=== PATIENT | female | born 1950 | race Caucasian/White ===

== ENCOUNTER 2016-10-14 13:56 | Outpatient (RCR) | payer OTHER ==
[~2016-10-14 13:56] MED LIST: ALBU2.5V4 IH; ASMANAX IH; ASP81CT; ATEN100T45 PO; CYCL10TA9 PO; CYCL5TAB PO; GBPN300C PO; HYDR-87; HYDR25TA4 PO; Lutein; MELO7.5T46 PO; MTP100TCR; MULT-1029 PO; RT-ALBUINH IH; WALK1EAC23 MC; WARF2.5T82 PO; WRF2.5T; WRF5T; WRF5T PO
== END 2016-10-14 14:30 | disposition home or self-care (01) ==
LOC: WOUNDCARE 13:56
PROVIDERS: ATTEND Surgery
DX: L98.492 Non-pressure chronic ulcer of skin of other sites with fat layer exposed (principal); B36.9 Superficial mycosis, unspecified; E66.01 Morbid (severe) obesity due to excess calories; Z68.42 Body mass index [BMI] 45.0-49.9, adult
CPT/HCPCS: 11042; 17250; 87070; 87075; 87205; 99212; 99213

== ENCOUNTER → 2016-12-01 | Outpatient (CLI) | payer OTHER ==
--- NOTE | 2016-12-01 20:28 | Diagnostic Imaging Report ---
Bilateral screening mammogram The current study was also evaluated with a Computer Aided Detection (CAD) system. Indication: Screening. No current complaints stated on the questionnaire. COMPARISON: 11/26/15. FINDINGS: The breasts are composed of scattered fibroglandular densities. There are scattered benign-appearing calcifications. Stable nodule in the central aspect of the right breast inferiorly and scattered benign-appearing calcifications are seen. Lateral left breast biopsy clip is noted. Allowing for technique and positional differences, no suspicious change is seen. IMPRESSION: No significant change. ACR BI-RADS Category 2: Benign findings. Result letter will be mailed to the patient. Note: At least 10% of breast cancer is not imaged by mammography. Dictated by: Dictated on workstation # [id number]
== END ==
LOC: RAD 09:59
PROVIDERS: ATTEND Internal Medicine
DX: Z12.31 Encounter for screening mammogram for malignant neoplasm of breast (principal)
CPT/HCPCS: 77067

== ENCOUNTER 2017-01-09 16:28 | Inpatient (IN) | payer OTHER ==
[~2017-01-09] VITALS: Ht 157.5 cm; Wt 117.1 kg
[~2017-01-09 16:28] MED LIST changes: -Lutein; +Lutein PO
--- NOTE | 2017-01-09 16:38 | ED Abdominal Pain ---
General Stated Complaint: VOMITING AND R SIDE PAIN Source of Information: Patient Exam Limitations: No Limitations History of Present Illness Time Seen By Provider: 16:36 Initial Comments To ER with reports of vomiting and right-sided abdominal pain. The pain affects both the upper and lower quadrants of the right side of the abdomen. This began last night. No fevers or chills. No constipation or diarrhea. No dysuria. She does not have an appendix any longer but she does have her gallbladder still she states. Pain has been constant since last night. He takes hydrocodone for her arthritis. She takes Coumadin for atrial fibrillation. Primary care is the CT and LEYDA Matson at [facility]. Timing/Duration: 12-24 Hours Severity/Quality: Severe Location: RUQ, RLQ Radiation: No Radiation Activities at Onset: None Allergies and Home Medications Allergies Coded Allergies: No Known Drug Allergies (Verified , 06/13/08) Home Medications Albuterol Sulfate 6.7 Gm Hfa.aer.ad, 6.7 GM IH PRN, (Reported) Albuterol Sulfate 2.5 Mg/3 Ml Vial.neb, 2.5 MG IH PRN, (Reported) Atenolol 100 Mg Tablet, 100 MG PO DAILY, (Reported) Cyclobenzaprine HCl 5 Mg Tablet, 5 MG PO Q8H, #15 Prescribed by: BUSTER CORTEZ on 06/30/16 0607 Gabapentin 300 Mg Cap, 300 MG PO BID, (Reported) Hydrochlorothiazide 25 Mg Tablet, 12.5 MG PO DAILY, (Reported) Hydrocodone/Ibuprofen 1 Each Tablet, #84 (Reported) Meloxicam 7.5 Mg Tablet, 7.5 MG PO DAILY, #30 (Reported) Multivit-Min/FA/Lycopene/Lut 1 Each Tablet, 1 EACH PO DAILY, (Reported) Warfarin Sod 5 Mg Tab, 5 MG PO , , , (Reported) Warfarin Sodium 2.5 Mg Tablet, 2.5 MG PO Lloyd, M, W, F, (Reported) [Asmanax] , 220 MCG IH BID, (Reported) [Lutein] , (Reported) Review of Systems Constitutional: see HPI, No chills, No fever EENTM: No Symptoms Reported Respiratory: No Symptoms Reported Cardiovascular: No Symptoms Reported Gastrointestinal: See HPI, Abdominal Pain, Denies Constipated, Denies Diarrhea , Nausea, Vomiting Genitourinary: No Symptoms Reported Musculoskeletal: no symptoms reported Skin: no symptoms reported Psychiatric/Neurological: No Symptoms Reported Endocrine: No Symptoms Reported Past Rntrvus-Huinho-Xhjqrf Hx Patient Social History Type Used: Cigarettes Recent Foreign Travel: No Contact w/Someone Who Travel: No Recent Hopitalizations: No Seasonal Allergies Seasonal Allergies: Yes Surgeries HX Surgeries: Yes Surgeries: Abdominal, Adenoidectomy, Appendectomy, Section, Renal, Tonsillectomy, Tubal Ligation Respiratory Hx Respiratory Disorders: Yes Respiratory Disorders: Asthma Cardiovascular Hx Cardiac Disorders: Yes (A-FIB WITH RVR) Cardiac Disorders: Atrial Fibrillation, Chronic Edema/Swelling, High Cholesterol, Hypertension Neurological Hx Neurological Disorders: No Neurological Disorders: Neuropathy Reproductive System Hx 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 Genitourinary Hx Genitourinary Disorders: Yes Genitourinary Disorders: Kidney Stones Gastrointestinal Hx Gastrointestinal Disorders: Yes (VENTRAL HERNIAS) Gastrointestinal Disorders: Abdominal Hernia Musculoskeletal Hx Musculoskeletal Disorders: Yes (SCIATICA; COMPRESSION FX) Musculoskeletal Disorders: Chronic Back Pain, Fractures Endocrine Hx Endocrine Disorders: Yes (THYROID NODULES; MORBID OBESITY) HEENT HX ENT Disorders: No Cancer Hx Cancer: No Psychosocial Hx Psychiatric Problems: No Behavioral Health Disorders: Anxiety Integumentary HX Skin/Integumentary Disorder: No Blood Transfusions Hx Blood Disorders: No Physical Exam Vital Signs VS - Last 72 Hours, by Label 01/09/17 16:31 Temp 98.3 Pulse 81 Resp 18 B/P (MAP) 193/103 Capillary Refill : General Appearance: WD/WN, mild distress, obese HEENT: PERRL/EOMI, normal ENT inspection Neck: non-tender, full range of motion Respiratory: normal breath sounds, no respiratory distress, no accessory muscle use Cardiovascular: regular rate, rhythm, no murmur Gastrointestinal: normal bowel sounds, soft, tenderness (to the right side of the abdomen) Extremities: normal range of motion, non-tender Neurologic/Psychiatric: alert, normal mood/affect, oriented x 3 Skin: normal color, warm/dry Progress/Results/Core Measures Results/Orders Lab Results Laboratory Tests Test 01/09/17 16:40 Range/Units White Blood Count 18.3 H 4.3-11.0 10^3/uL Red Blood Count 6.09 H 4.35-5.85 10^6/uL Hemoglobin 14.9 11.5-16.0 G/DL Hematocrit 46 35-52 % Mean Corpuscular Volume 76 L 80-99 FL Mean Corpuscular Hemoglobin 25 25-34 PG Mean Corpuscular Hemoglobin Concent 32 32-36 G/DL Red Cell Distribution Width 22.2 H 10.0-14.5 % Platelet Count 307 130-400 10^3/uL Mean Platelet Volume 10.6 H 7.4-10.4 FL Neutrophils (%) (Auto) 86 H 42-75 % Lymphocytes (%) (Auto) 8 L 12-44 % Monocytes (%) (Auto) 6 0-12 % Eosinophils (%) (Auto) 0 0-10 % Basophils (%) (Auto) 0 0-10 % Neutrophils # (Auto) 15.7 H 1.8-7.8 X 10^3 Lymphocytes # (Auto) 1.4 1.0-4.0 X 10^3 Monocytes # (Auto) 1.1 H 0.0-1.0 X 10^3 Eosinophils # (Auto) 0.0 0.0-0.3 10^3/uL Basophils # (Auto) 0.0 0.0-0.1 10^3/uL Neutrophils % (Manual) 81 % Lymphocytes % (Manual) 7 % Monocytes % (Manual) 8 % Eosinophils % (Manual) 0 % Basophils % (Manual) 0 % Band Neutrophils 4 % Anisocytosis MARKED Microcytosis SLIGHT Prothrombin Time 23.2 H 12.2-14.7 SEC INR Comment 2.1 H 0.8-1.4 Sodium Level 143 135-145 MMOL/L Potassium Level 3.7 3.6-5.0 MMOL/L Chloride Level 103 98-107 MMOL/L Carbon Dioxide Level 29 21-32 MMOL/L Anion Gap 11 5-14 MMOL/L Blood Urea Nitrogen 16 7-18 MG/DL Creatinine 0.74 0.60-1.30 MG/DL Estimat Glomerular Filtration Rate > 60 BUN/Creatinine Ratio 22 Glucose Level 146 H 70-105 MG/DL Calcium Level 9.7 8.5-10.1 MG/DL Total Bilirubin 0.8 0.1-1.0 MG/DL Aspartate Amino Transf (AST/SGOT) 19 5-34 U/L Alanine Aminotransferase (ALT/SGPT) 22 0-55 U/L Alkaline Phosphatase 93 40-136 U/L Total Protein 7.3 6.4-8.2 G/DL Albumin 4.2 3.2-4.5 G/DL Lipase 22 8-78 U/L My Orders Orders - BEBETO CAMPBELL APRN Cbc With Automated Diff (01/09/17 16:38) Comprehensive Metabolic Panel (01/09/17 16:38) Ua Culture If Indicated (01/09/17 16:38) Saline Lock/Iv-Start (01/09/17 16:38) Ct Abdomen/Pelvis W (01/09/17 16:38) Lipase (01/09/17 16:38) Fentanyl Injection (Sublimaze Injection (01/09/17 16:45) Ondansetron Injection (Zofran Injectio (01/09/17 16:45) Protime With Inr (01/09/17 16:38) Manual Differential (01/09/17 16:40) Iohexol Injection (Omnipaque 350 Mg/Ml 1 (01/09/17 17:30) Ns (Ivpb) (Sodium Chloride 0.9% Ivpb Bag (01/09/17 17:30) Us Gallbladder [id number] (01/09/17 ) Medications Given in ED Current Medications Medications Dose Ordered Sig/Vidhi Route Start Time Stop Time Status Last Admin Dose Admin Fentanyl Citrate 50 mcg ONCE ONCE IVP 01/09/17 16:45 01/09/17 16:46 DC 01/09/17 16:59 50 MCG Iohexol 100 ml ONCE ONCE IV 01/09/17 17:30 01/09/17 17:31 DC 01/09/17 17:36 100 ML Ondansetron HCl 4 mg ONCE ONCE IVP 01/09/17 16:45 01/09/17 16:46 DC 01/09/17 16:57 4 MG Sodium Chloride 100 ml ONCE ONCE IV 01/09/17 17:30 01/09/17 17:31 DC 01/09/17 17:36 80 ML Vital Signs/I&O Vital Sign - Last 12Hours 01/09/17 16:31 Temp 98.3 Pulse 81 Resp 18 B/P (MAP) 193/103 Diagnostic Imaging Diagonstic Imaging: CT Comments NAME: SAM OSCAR MED REC#: [id number] PT STATUS: REG ER : 1950 PHYSICIAN: BEBETO CAMPBELL APRN ADMIT DATE: 01/09/17/ER Draft Date of Exam:01/09/17 CT ABDOMEN/PELVIS W PROCEDURE: CT abdomen and pelvis with contrast. TECHNIQUE: Multiple contiguous axial images were obtained through the abdomen and pelvis after administration of intravenous contrast. INDICATION: Nausea, vomiting. COMPARISON: 12/27/2006. FINDINGS: Lung bases are clear. Gallbladder, solid organs, and vascular structures are grossly normal. There are moderately distended loops of small bowel in the left mid abdomen and centrally. Large lower abdominal hernia and diastasis is present and essentially unchanged from the prior examination. Small amount of fluid density is seen within the left lower quadrant abdominal hernia. A definite transition point is not seen involving the small bowel obstruction. The colon and distal small bowel loops are decompressed. There is no ischemia, free air, or free fluid. Reproductive organs, urinary bladder, and distal ureters are grossly normal. IMPRESSION: Large left lower quadrant abdominal wall hernia with diastasis of the anterior abdominal wall with small bowel obstruction. A definite transition point is not seen although it is suspected to be within the large lower abdominal wall hernia. Please note due to technical factors, the entire abdominal wall was not included during this series. Follow-up recommended. Dictated on workstation # [id number] Dict: 01/09/17 1757 Trans: 01/09/17 1807 [id number] Interpreted by: JAYJAY SANDERSON Electronically signed by: NAME: [facility] REC#: [id number] PT STATUS: REG ER : 1950 PHYSICIAN: BEBETO CAMPBELL MANIPULATIVE THERAPY SPECIALIST ADMIT DATE: 01/09/17/ER Draft Date of Exam:01/09/17 US GALLBLADDER [id number] PROCEDURE: US Gallbladder. TECHNIQUE: Multiple real-time grayscale images were obtained over the right upper quadrant in various projections. INDICATION: Right upper quadrant abdominal pain. COMPARISON: None. FINDINGS: The size and echogenicity of the liver is normal. There is no mass or intrahepatic biliary ductal dilatation. Common bile duct is poorly visualized due to overlying bowel gas. Single gallstone is seen within the gallbladder. No cholecystitis is seen. Pancreas is poorly visualized. The right kidney is normal. There is no ascites. IMPRESSION: Cholelithiasis without cholecystitis. Dictated on workstation # [id number] Dict: 01/09/17 1820 Trans: 01/09/17 1824 [id number] Interpreted by: JAYJAY SANDERSON Electronically signed by: Departure Communication Time/Spoke to Admitting Phy: 18:30 Communication Discussed the case with Dr. Mobley. We will admit to him. Consult medicine. Continue the warfarin for her atrial fibrillation at this time. No antibiotics at this time, leukocytosis likely secondary to nausea vomiting and stress response. Time/Spoke to Consulting Physi: 18:31 Communication/Consulting Consult to Dr. Carbajal. Impression Impression: Primary Impression: Small bowel obstruction Disposition: ADMITTED INPATIENT Condition: Stable Decision to Admit Reason: Admit from ER (General) Decision to Admit/Date: January 09, 2017 Time/Decision to Admit Time: 18:14 Departure-Patient Inst. Referrals: CARLY WALLS MD (PCP/Family) Primary Care Physician BEBETO CAMPBELL APRN January 09, 2017 16:38
[2017-01-09] MEDS ORDERED: ONDANSETRON 4 MG/2 ML (SDV) Z0FRAN IVP ONE ×2 (16:45→19:00)
[2017-01-09] MEDS ORDERED: fentaNYL INJECTION 100 MCG/2 ML AMP IVP ONE ×2 (16:45→19:00)
[2017-01-09 16:55] LABS: BASOPHILS % (AUTO) 0 % (0-10); EOSINOPHILS % (AUTO) 0 % (0-10); LYMPHOCYTES # (AUTO) 1.4 X 10^3 (1.0-4.0); LYMPHOCYTES % (AUTO) 8 % (12-44); MEAN CORPUSCULAR HEMOGLOBIN 25 PG (25-34); MEAN CORPUSCULAR HGB CONC 32 G/DL (32-36); MEAN CORPUSCULAR VOLUME 76 FL (80-99); MEAN PLATELET VOLUME 10.6 FL (7.4-10.4); MONOCYTES # (AUTO) 1.1 X 10^3 (0.0-1.0); MONOCYTES % (AUTO) 6 % (0-12); NEUTROPHILS # (AUTO) 15.7 X 10^3 (1.8-7.8); NEUTROPHILS % (AUTO) 86 % (42-75); PLATELET COUNT 307 10^3/uL (130-400); RED BLOOD COUNT 6.09 10^6/uL (4.35-5.85); RED CELL DISTRIBUTION WIDTH 22.2 % (10.0-14.5); WHITE BLOOD COUNT 18.3 10^3/uL (4.3-11.0)
[2017-01-09 17:04] LABS: INR 2.1 (0.8-1.4); PROTHROMBIN TIME PATIENT 23.2 SEC (12.2-14.7)
[2017-01-09 17:13] LABS: BAND NEUTROPHILS 4 %; BASOPHILS % (MANUAL) 0 %; EOSINOPHILS % (MANUAL) 0 %; LYMPHOCYTES % (MANUAL) 7 %; NEUTROPHILS % (MANUAL) 81 %
[2017-01-09 17:14] LABS: ALANINE AMINOTRANSFERASE 22 U/L (0-55); ALBUMIN 4.2 G/DL (3.2-4.5); ANION GAP 11 MMOL/L (5-14); ANISOCYTOSIS MARKED; ASPARTATE AMINO TRANSFERASE 19 U/L (5-34); BILIRUBIN,TOTAL 0.8 MG/DL (0.1-1.0); BLOOD UREA NITROGEN 16 MG/DL (7-18); BUN/CREATININE RATIO 22; CALCIUM 9.7 MG/DL (8.5-10.1); CARBON DIOXIDE 29 MMOL/L (21-32); CHLORIDE 103 MMOL/L (98-107); CREATININE SERUM 0.74 MG/DL (0.60-1.30); GFR ESTIMATED > 60; GLUCOSE 146 MG/DL (70-105); LIPASE 22 U/L (8-78); MICROCYTOSIS SLIGHT; POTASSIUM 3.7 MMOL/L (3.6-5.0); SODIUM 143 MMOL/L (135-145); TOTAL PROTEIN 7.3 G/DL (6.4-8.2)
[2017-01-09] MEDS ORDERED: IOHEXOL 350 MG/ML 100 ML (OMNIPAQUE 350) VIAL IV ONE (17:30)
[2017-01-09] MEDS ORDERED: NS 100 ML (IVPB) BAG IV ONE (17:30)
--- NOTE | 2017-01-09 18:07 | Diagnostic Imaging Report ---
PROCEDURE: CT abdomen and pelvis with contrast. TECHNIQUE: Multiple contiguous axial images were obtained through the abdomen and pelvis after administration of intravenous contrast. INDICATION: Nausea, vomiting. COMPARISON: 12/27/2006. FINDINGS: Lung bases are clear. Gallbladder, solid organs, and vascular structures are grossly normal. There are moderately distended loops of small bowel in the left mid abdomen and centrally. Large lower abdominal hernia and diastasis is present and essentially unchanged from the prior examination. Small amount of fluid density is seen within the left lower quadrant abdominal hernia. A definite transition point is not seen involving the small bowel obstruction. The colon and distal small bowel loops are decompressed. There is no ischemia, free air, or free fluid. Reproductive organs, urinary bladder, and distal ureters are grossly normal. IMPRESSION: Large left lower quadrant abdominal wall hernia with diastasis of the anterior abdominal wall with small bowel obstruction. A definite transition point is not seen although it is suspected to be within the large lower abdominal wall hernia. Please note due to technical factors, the entire abdominal wall was not included during this series. Follow-up recommended. Dictated by: Dictated on workstation # [id number]
--- NOTE | 2017-01-09 18:24 | Diagnostic Imaging Report ---
PROCEDURE: US Gallbladder. TECHNIQUE: Multiple real-time grayscale images were obtained over the right upper quadrant in various projections. INDICATION: Right upper quadrant abdominal pain. COMPARISON: None. FINDINGS: The size and echogenicity of the liver is normal. There is no mass or intrahepatic biliary ductal dilatation. Common bile duct is poorly visualized due to overlying bowel gas. Single gallstone is seen within the gallbladder. No cholecystitis is seen. Pancreas is poorly visualized. The right kidney is normal. There is no ascites. IMPRESSION: Cholelithiasis without cholecystitis. Dictated by: Dictated on workstation # [id number]
[2017-01-09 19:24] VITALS: BP 147/94
--- NOTE | 2017-01-09 19:27 | Diagnostic Imaging Report ---
INDICATION: Enteric tube placement. DISCUSSION: Single view of the chest was obtained for enteric tube placement. Given the portable technique and patient body habitus, the tip of the tube cannot be visualized. The tube is at least in the distal esophagus. Normal heart size. No focal consolidation, pleural fluid, or pneumothorax. Dedicated imaging of the upper abdomen could be performed for confirmation of tube placement. IMPRESSION: 1. Exam is limited due to portable technique and patient body habitus. The tip of the enteric tube cannot be readily identified. Recommend abdominal film of the upper abdomen for further evaluation. Dictated by: Dictated on workstation # [id number]
[2017-01-09] MEDS ORDERED: ONDANSETRON 4 MG/2 ML (SDV) Z0FRAN IV PRN (20:00)
[2017-01-09] MEDS ORDERED: METOCLOPRAMIDE INJ 10 MG/2 ML (REGLAN) IVP PRN (20:00)
[2017-01-09] MEDS ORDERED: CATHETER FLUSH 10 ML SYR IV PRN (20:00)
--- NOTE | 2017-01-09 20:21 | Diagnostic Imaging Report ---
Indication: Enteric tube placement. Discussion: Two views of the abdomen were obtained. Enteric tube tip is in the mid gastric body in good position. Contrast is noted within the collecting systems and urinary bladder. Air-filled small bowel loops are noted diffusely throughout the abdomen, likely ileus. Impression: 1. Enteric tube tip in the mid gastric body. Dictated by: Dictated on workstation # [id number]
[2017-01-09] MEDS: NS W/KCL 40 MEQ/L 1,000 ML IV SCH (21:11)
[2017-01-09] MEDS: fentaNYL INJECTION 100 MCG/2 ML AMP INJ PRN (22:21)
[2017-01-10] VITALS: BP 135/61
[2017-01-10] MEDS: fentaNYL INJECTION 100 MCG/2 ML AMP INJ PRN ×6 (01:47→22:26)
[2017-01-10 04:00] VITALS: BP 121/60
[2017-01-10 05:51] LABS: BASOPHILS % (AUTO) 0 % (0-10); EOSINOPHILS # (AUTO) 0.1 10^3/uL (0.0-0.3); EOSINOPHILS % (AUTO) 1 % (0-10); LYMPHOCYTES % (AUTO) 19 % (12-44); MEAN CORPUSCULAR HEMOGLOBIN 24 PG (25-34); MEAN CORPUSCULAR HGB CONC 31 G/DL (32-36); MEAN CORPUSCULAR VOLUME 78 FL (80-99); MEAN PLATELET VOLUME 11.2 FL (7.4-10.4); MONOCYTES # (AUTO) 1.4 X 10^3 (0.0-1.0); MONOCYTES % (AUTO) 13 % (0-12); NEUTROPHILS # (AUTO) 7.4 X 10^3 (1.8-7.8); NEUTROPHILS % (AUTO) 67 % (42-75); PLATELET COUNT 275 10^3/uL (130-400); RED BLOOD COUNT 5.25 10^6/uL (4.35-5.85)
[2017-01-10 06:10] LABS: ALANINE AMINOTRANSFERASE 18 U/L (0-55); ALBUMIN 3.4 G/DL (3.2-4.5); ANION GAP 11 MMOL/L (5-14); ASPARTATE AMINO TRANSFERASE 17 U/L (5-34); BLOOD UREA NITROGEN 20 MG/DL (7-18); BUN/CREATININE RATIO 25; CALCIUM 8.8 MG/DL (8.5-10.1); CARBON DIOXIDE 29 MMOL/L (21-32); CHLORIDE 107 MMOL/L (98-107); GFR ESTIMATED > 60; GLUCOSE 121 MG/DL (70-105); SODIUM 147 MMOL/L (135-145); TOTAL PROTEIN 6.1 G/DL (6.4-8.2)
[2017-01-10] MEDS ORDERED: ACETAMINOPHEN 500 MG TAB (TYLENOL) PO PRN (06:45)
[2017-01-10] MEDS: RT-ALBUTEROL/IPRATROPIUM 3 ML (DUONEB) VIAL INH SCH ×4 (06:53→19:36)
[2017-01-10] MEDS ORDERED: RT-ALBUTEROL/IPRATROPIUM 3 ML (DUONEB) VIAL INH PRN (07:00)
[2017-01-10] MEDS: NS W/KCL 40 MEQ/L 1,000 ML IV SCH ×2 (07:38→16:40)
[2017-01-10 07:49] VITALS: BP 134/81
--- NOTE | 2017-01-10 08:11 | History & Physicial ---
History of Present Illness History of Present Illness Reason for visit/HPI Lower abdominal pain and nausea for 48 hours Date of Admission January 09, 2017 at 18:25 I consulted on this patient on 01/10/17 08:07 Attending Physician Sally Banerjee MD Admitting Physician Ly Mcfadden MD Consult Allergies and Home Medications Allergies Coded Allergies: No Known Drug Allergies (Verified , 06/13/08) Home Medications Albuterol Sulfate 6.7 Gm Hfa.aer.ad, 6.7 GM IH PRN, (Reported) Albuterol Sulfate 2.5 Mg/3 Ml Vial.neb, 2.5 MG IH PRN, (Reported) Atenolol 100 Mg Tablet, 100 MG PO DAILY, (Reported) Cyclobenzaprine HCl 5 Mg Tablet, 5 MG PO Q8H, #15 Prescribed by: BUSTER CORTEZ on 06/30/16 0607 Gabapentin 300 Mg Cap, 300 MG PO BID, (Reported) Hydrochlorothiazide 25 Mg Tablet, 12.5 MG PO DAILY, (Reported) Hydrocodone/Ibuprofen 1 Each Tablet, #84 (Reported) Multivit-Min/FA/Lycopene/Lut 1 Each Tablet, 1 EACH PO DAILY, (Reported) Warfarin Sod 5 Mg Tab, 5 MG PO , , , (Reported) Warfarin Sodium 2.5 Mg Tablet, 2.5 MG PO Lloyd, M, W, F, (Reported) [Asmanax] , 220 MCG IH BID, (Reported) [Lutein] , (Reported) Past Zlyjzuj-Brehfs-Bfmdoe Hx Patient Social History Alcohol Use: Denies Use Recreational Drug Use: No Smoking Status: Former Smoker Type Used: Cigarettes Physical Abuse Screen: No Sexual Abuse: No Recent Foreign Travel: No Contact w/other who traveled: No Recent Hopitalizations: No Recent Infectious Disease Expo: No Seasonal Allergies Seasonal Allergies: Yes Surgeries HX Surgeries: Yes Surgeries: Abdominal, Adenoidectomy, Appendectomy, Section, Renal, Tonsillectomy, Tubal Ligation Respiratory Hx Respiratory Disorders: Yes Cardiovascular Hx Cardiovascular Disorders: Yes (A-FIB WITH RVR) Cardiac Disorders: Atrial Fibrillation, Chronic Edema/Swelling, High Cholesterol, Hypertension Neurological Hx Neurological Disorders: No Neurological Disorders: Neuropathy Reproductive System Hx Reproductive Disorders: No Sexually Transmitted Disease: No HIV/AIDS: No Genitourinary Hx Genitourinary Disorders: Yes Genitourinary Disorders: Kidney Stones Gastrointestinal Hx Gastrointestinal Disorders: Yes (VENTRAL HERNIAS) Gastrointestinal Disorders: Abdominal Hernia, Obstructive Bowel Musculoskeletal Hx Musculoskeletal Disorders: Yes (SCIATICA; COMPRESSION FX) Musculoskeletal Disorders: Chronic Back Pain, Fractures Endocrine Hx Endocrine Disorders: Yes (THYROID NODULES; MORBID OBESITY) HEENT HX ENT Disorders: No HEENT Disorders: Macular Degeneration Hearing Impairment: Denies Cancer Hx Cancer: No Psychosocial Hx Psychiatric Problems: No Behavioral Health Disorders: Anxiety, PTSD Integumentary HX Skin/Integumentary Disorder: No Blood Transfusions Hx Blood Disorders: No Constitutional: no symptoms reported EENTM: no symptoms reported Respiratory: cough, short of breath Cardiovascular: no symptoms reported Gastrointestinal: abdominal pain (RLQ) Genitourinary: no symptoms reported : No Musculoskeletal: back pain Skin: no symptoms reported Psychiatric/Neurological: No Symptoms Reported Physical Exam Vital Signs Vital Sign - Last 12Hours 01/09/17 01/09/17 16:31 19:06 Temp 98.3 Pulse 81 Resp 18 B/P (MAP) 193/103 Pulse Ox 98 Capillary Refill : Less Than 3 Seconds General Appearance: Anxious HEENT: TMs Normal Neck: Normal Inspection Respiratory: Decreased Breath Sounds, Wheezing Cardiovascular: Regular Rate, Rhythm Gastrointestinal: Soft, Hernia Rectal: Deferred Back: Normal Inspection Extremity: Normal Capillary Refill Neurologic/Psychiatric: Alert, Oriented x3 Skin: Warm/Dry Comments large recurrent, long-standing incisional hernia with multiple loops of bowel outside the fascia. Loss of abdominal domain on CT scan; no transition as for as obstruction is concerned Assessment/Plan Assessment and Plan lady with a long-standing, large and recurrent ventral hernia. Partial small bowel obstruction. Patient is passing flatus. Minimal output from the nasogastric tube. We'll continue to treat conservatively. May obtain a Gastrografin contrast study tomorrow. We'll optimize medical management Problems: Clinical Quality Measures DVT/VTE Risk/Contraindication: Risk Factor Score Per Nursin RFS Level Per Nursing on Admit: 3=High SALLY BANERJEE MD January 10, 2017 08:11
[2017-01-10] MEDS ORDERED: DIATRIZOATE MEGLUM/SODIUM 37% 120 ML (GASTROGRAFIN) NG ONE (09:30)
--- NOTE | 2017-01-10 12:23 | Diagnostic Imaging Report ---
INDICATION: Abdominal distention. Water-soluble contrast media was administered. Serial overhead radiographs obtained. Air and ultimately contrast-containing small and large bowel hollow viscera project far lateral in the left lower quadrant and are presumed to reflect bowel unobstructed within a large hernia better delineated at recent CT. Contrast media can be first confirmed within the large bowel at the 2-hour 15-minute interval following contrast administration. Small bowel showed no mucosal irregularity, filling defect, or transition zone. It is mildly distended throughout at about 3.5 cm. There was no extravasation. IMPRESSION: Small bowel distention mild throughout without transition zone or obstruction to the advancing contrast column that reaches the colon within 2 hours. Large left lower quadrant small and large bowel hollow viscus hernia showed no findings of obstruction at this study. No extravasation to suggest perforation. Dictated by: Dictated on workstation # [id number]
[2017-01-10 12:43] VITALS: BP 145/82
[2017-01-10] MEDS ORDERED: WARF-48 PO (13:53)
[2017-01-10] MEDS ORDERED: CYCL10TA9 PO (13:54)
[2017-01-10] MEDS ORDERED: MOME220A2 IH (13:54)
[2017-01-10] MEDS ORDERED: DOCU100C37 PO (13:54)
[2017-01-10] MEDS ORDERED: TR1C15 TP (13:54)
[2017-01-10] MEDS ORDERED: HYDR-753 PO (13:54)
[2017-01-10] MEDS ORDERED: MELATONIN GUMMY PO (13:54)
[2017-01-10] MEDS ORDERED: ATEN100T PO (13:54)
[2017-01-10 16:05] VITALS: BP 104/78
[2017-01-10] MEDS ORDERED: RT-ALBUTEROL HFA (VENTOLIN) PER PUFF IH SCH (19:45)
[2017-01-10] MEDS ORDERED: warFARin 5 MG (COUMADIN) TAB PO SCH (19:45)
[2017-01-10] MEDS ORDERED: CYCLOBENZAPRINE 10 MG (FLEXERIL) TAB PO PRN (19:45)
[2017-01-10] MEDS ORDERED: RT-ALBUTEROL SULF 2.5 MG/3 ML PRE-MIX VIAL IH PRN (19:45)
[2017-01-10 19:50] VITALS: BP 104/73
[2017-01-10] MEDS ORDERED: MOMETASONE FUROATE 220 MCG IH SCH (21:00)
[2017-01-10] MEDS ORDERED: MELATONIN 3 MG TABLET PO SCH (21:00)
[2017-01-10] MEDS ORDERED: MELATONIN GUMMY PO SCH (21:00)
[2017-01-10] MEDS: DOCUSATE SODIUM 100 MG (COLACE) CAP PO SCH (22:18)
[2017-01-10] MEDS: TRIAMCINOLONE 0.1% CR (KENALOG) 15 GM TUBE TP SCH (22:19)
[2017-01-11] VITALS: BP 96/50
[2017-01-11] MEDS: fentaNYL INJECTION 100 MCG/2 ML AMP INJ PRN ×2 (01:43→04:43)
[2017-01-11 03:25] VITALS: BP 116/75
[2017-01-11] MEDS ORDERED: MULTIVIT W/MINERALS TAB (THERAGRAN M) PO SCH (07:00)
[2017-01-11] MEDS: RT-FLUTICASONE 220 MCG (FLOVENT) PER PUFF INH SCH ×2 (07:02→07:26)
[2017-01-11] MEDS: RT-ALBUTEROL/IPRATROPIUM 3 ML (DUONEB) VIAL INH SCH ×3 (07:23→14:20)
[2017-01-11] MEDS: TRIAMCINOLONE 0.1% CR (KENALOG) 15 GM TUBE TP SCH (08:12)
[2017-01-11] MEDS: HYDROcodone/APAP 10 MG/325 MG (LORTAB) TAB PO PRN ×2 (08:12→13:59)
[2017-01-11] MEDS: DOCUSATE SODIUM 100 MG (COLACE) CAP PO SCH (08:13)
[2017-01-11 08:16] VITALS: BP 110/73
[2017-01-11] MEDS ORDERED: NON-FORMULARY MEDICATION 1 EA EA (Atenolol 100 MG) PO SCH (09:00)
[2017-01-11] MEDS ORDERED: HYDROCHLOROTHIAZIDE 25 MG (HCTZ) TAB PO SCH (09:00)
[2017-01-11] MEDS ORDERED: ATENOLOL 50 MG (TENORMIN) TAB PO SCH (09:00)
[2017-01-11] MEDS ORDERED: NON-FORMULARY MEDICATION 1 EA EA (Multivit-Min/FA/Lycopene/Lut (Centrum Silver Tablet) 1 T PO SCH (09:00)
[2017-01-11] MEDS ORDERED: LUTEIN PO SCH (09:00)
[2017-01-11 11:56] VITALS: BP 94/52
--- NOTE | 2017-01-11 13:26 | Consultation ([facility]) ---
HPI History of Present Illness: 66 yo female admitted with partial SBO, I am consulted for medical management. I attempted to see patient yesterday but she was gone for testing. This morning she states she is feeling better. NG has been removed and she is tolerating soft diet, she denies any concerns. Attending Physician Tomy Mobley MD PCP Ly Mcfadden MD Consult Date of Admission January 09, 2017 at 6:25 pm Home Medications Home Medications Reviewed patient Home Medication Reconciliation Form Allergies Coded Allergies: No Known Drug Allergies (Verified , 06/13/08) [id number] Hx Patient Social History Alcohol Use: Denies Use Recreational Drug Use: No Smoking Status: Former Smoker Type Used: Cigarettes Recent Foreign Travel: No Contact w/other who traveled: No Recent Hopitalizations: No Recent Infectious Disease Expo: No Physical Abuse Screen: No Sexual Abuse: No Past Medical History PMHx: Atrial fibrillation HTN Hypothyroidism Asthma Depression Thoracic compression fracture PSurgHx: Hernia repair x 2 C section x 2 Appendectomy Tubal ligation Tonsillectony Lithotripsy Family Medical History Significant Family History: Cancer Review of Systems ([facility]) Constitutional: no symptoms reported EENTM: no symptoms reported Respiratory: No short of breath Cardiovascular: No chest pain Gastrointestinal: see HPI Genitourinary: no symptoms reported Musculoskeletal: no symptoms reported Skin: no symptoms reported Psychiatric/Neurological: No Symptoms Reported Reviewed Test Results Reviewed Test Results Lab Laboratory Tests Test 01/09/17 16:40 01/10/17 05:25 Range/Units White Blood Count 18.3 H 11.0 4.3-11.0 10^3/uL Red Blood Count 6.09 H 5.25 4.35-5.85 10^6/uL Hemoglobin 14.9 12.8 11.5-16.0 G/DL Hematocrit 46 41 35-52 % Mean Corpuscular Volume 76 L 78 L 80-99 FL Mean Corpuscular Hemoglobin 25 24 L 25-34 PG Mean Corpuscular Hemoglobin Concent 32 31 L 32-36 G/DL Red Cell Distribution Width 22.2 H 22.0 H 10.0-14.5 % Platelet Count 307 275 130-400 10^3/uL Mean Platelet Volume 10.6 H 11.2 H 7.4-10.4 FL Neutrophils (%) (Auto) 86 H 67 42-75 % Lymphocytes (%) (Auto) 8 L 19 12-44 % Monocytes (%) (Auto) 6 13 H 0-12 % Eosinophils (%) (Auto) 0 1 0-10 % Basophils (%) (Auto) 0 0 0-10 % Neutrophils # (Auto) 15.7 H 7.4 1.8-7.8 X 10^3 Lymphocytes # (Auto) 1.4 2.0 1.0-4.0 X 10^3 Monocytes # (Auto) 1.1 H 1.4 H 0.0-1.0 X 10^3 Eosinophils # (Auto) 0.0 0.1 0.0-0.3 10^3/uL Basophils # (Auto) 0.0 0.0 0.0-0.1 10^3/uL Neutrophils % (Manual) 81 % Lymphocytes % (Manual) 7 % Monocytes % (Manual) 8 % Eosinophils % (Manual) 0 % Basophils % (Manual) 0 % Band Neutrophils 4 % Anisocytosis MARKED Microcytosis SLIGHT Prothrombin Time 23.2 H 12.2-14.7 SEC INR Comment 2.1 H 0.8-1.4 Sodium Level 143 147 H 135-145 MMOL/L Potassium Level 3.7 4.0 3.6-5.0 MMOL/L Chloride Level 103 107 98-107 MMOL/L Carbon Dioxide Level 29 29 21-32 MMOL/L Anion Gap 11 11 5-14 MMOL/L Blood Urea Nitrogen 16 20 H 7-18 MG/DL Creatinine 0.74 0.80 0.60-1.30 MG/DL Estimat Glomerular Filtration Rate > 60 > 60 BUN/Creatinine Ratio 22 25 Glucose Level 146 H 121 H 70-105 MG/DL Calcium Level 9.7 8.8 8.5-10.1 MG/DL Total Bilirubin 0.8 1.0 0.1-1.0 MG/DL Aspartate Amino Transf (AST/SGOT) 19 17 5-34 U/L Alanine Aminotransferase (ALT/SGPT) 22 18 0-55 U/L Alkaline Phosphatase 93 71 40-136 U/L Total Protein 7.3 6.1 L 6.4-8.2 G/DL Albumin 4.2 3.4 3.2-4.5 G/DL Lipase 22 8-78 U/L Physical Exam-([facility]) Physical Exam Vital Signs VS - Last 72 Hours, by Label 01/09/17 01/09/17 01/09/17 01/10/17 16:31 19:06 19:24 00:00 Temp 98.3 97.6 99.2 Pulse 81 82 74 85 Resp 18 18 18 18 B/P (MAP) 193/103 147/94 135/61 Pulse Ox 98 94 96 01/10/17 01/10/17 01/10/17 01/10/17 04:00 06:53 07:49 12:43 Temp 100.1 98.0 97.3 Pulse 85 99 81 Resp 20 20 20 B/P (MAP) 121/60 134/81 145/82 Pulse Ox 98 91 91 93 01/10/17 01/10/17 01/10/17 01/10/17 14:33 16:05 19:36 19:50 Temp 97.4 96.9 Pulse 94 94 Resp 20 20 B/P (MAP) 104/78 104/73 Pulse Ox 92 92 93 92 01/11/17 01/11/17 01/11/17 01/11/17 00:00 03:25 07:23 08:16 Temp 95.8 97.2 98.4 Pulse 105 106 136 Resp 20 16 20 B/P (MAP) 96/50 116/75 110/73 Pulse Ox 95 96 93 91 01/11/17 01/11/17 01/11/17 01/11/17 11:09 11:56 14:20 15:48 Temp 96.0 96.0 Pulse 80 82 Resp 20 18 B/P (MAP) 94/52 101/51 Pulse Ox 95 97 92 97 Capillary Refill : Less Than 3 Seconds General Appearance: no apparent distress Respiratory: lungs clear, normal breath sounds Cardiovascular: regular rate, rhythm Gastrointestinal: normal bowel sounds, other (mild tenderness and distention) Extremities: no pedal edema Neurologic/Psychiatric: alert, normal mood/affect Skin: normal color, warm/dry Assessment/Plan Assessment/Plan Admission Dx 1. Partial SBO 2. Atrial fibrillation 3. HTN 4. Asthma 5. Osteoarthritis and h/o thoracic compression fracture with chronic pain Plan 1. Partial SBO- management per Dr. Mobley 2. Atrial fibrillation- resumed home warfarin and atenolol -Monitor heart rate and BP- blood pressure has been low 3. HTN- hold HCTZ for low BP as needed 4. Asthma- fluticasone in place of home mometasone, continue albuterol RT protocol 5. Osteoarthritis and h/o thoracic compression fracture with chronic pain On hydrocodone 10/325 TID prn at home, resumed, minimize fentanyl IV use to help resolve bowel issues, continue docusate Diagnosis/Problems: Clinical Quality Measures DVT/VTE Risk/Contraindication: Risk Factor Score Per Nursin RFS Level Per Nursing on Admit: 3=High TILA JACKSON MD January 11, 2017 1:26 pm
[2017-01-11 15:48] VITALS: BP 101/51
--- NOTE | 2017-01-11 17:40 | Progress Note (SOAP) ---
Subjective Subjective/Events-last exam Has had bowel movements and is tolerating diet Review of Systems General: No Chills, No Night Sweats, No Fatigue, No Malaise HEENT: No Head Aches, No Eye Pain, No Ear Pain, No Dysphasia, No Sinus Congestion, No Post Nasal Drip, No Sore Throat Pulmonary: Cough Cardiovascular: No: Chest Pain, Edema, Lt Headedness, Orthopnea, Palpitations, Paroxysmal Noc. Dyspnea Gastrointestinal: No: Abdominal Pain, Constipation, Diarrhea, Hematochezia, Melena, Nausea, Vomiting Genitourinary: No Dysuria, No Frequency, No Incontinence, No Hematuria, No Retention Musculoskeletal: back pain Neurological: No: Change in speech, Confusion, Incoordination, Numbness, Other , Seizures, Weakness Objective Exam Vital Signs Date Time Temp Pulse Resp B/P (MAP) Pulse Ox O2 Delivery O2 Flow Rate FiO2 01/11/17 15:48 96.0 82 18 101/51 97 01/11/17 14:20 92 01/11/17 11:56 96.0 80 20 94/52 97 01/11/17 11:09 95 01/11/17 08:16 98.4 136 20 110/73 91 01/11/17 07:23 93 01/11/17 03:25 97.2 106 16 116/75 96 01/11/17 00:00 95.8 105 20 96/50 95 01/10/17 19:50 96.9 94 20 104/73 92 01/10/17 19:36 93 I & O 01/11/17 07:00 Intake Total 1150 ml Output Total 450 ml Balance 700 ml Capillary Refill : Less Than 3 Seconds General Appearance: No Apparent Distress Neck: Normal Inspection Respiratory: Lungs Clear Cardiovascular: Regular Rate, Rhythm Gastrointestinal: non tender, soft Assessment/Plan Assessment/Plan Assess & Plan/Chief Complaint Non-specific abdominal pain. Negative small bowel follow through. Home Final Diagnosis Non-specific abdominal pain Clinical Quality Measures DVT/VTE Risk/Contraindication: Risk Factor Score Per Nursin RFS Level Per Nursing on Admit: 3=High SALLY BANERJEE MD January 11, 2017 5:40 pm
--- NOTE | 2017-01-11 17:43 | Discharge Inst-Simple/Standard ---
Discharge Inst-Standard Discharge Medications New, Converted or Re-Newed RX: Other Patient Instructions/Follow Up Plan of Care/Instructions/FU: Off work till 01/17/17 Activity as Tolerated: Yes Discharge Diet: No Restrictions Planned Outpatient Orders/Ref. Pneu Vac Indicated: Yes SALLY BANERJEE MD January 11, 2017 5:43 pm
[2017-01-11] MEDS ORDERED: warFARin 5 MG (COUMADIN) TAB PO SCH (18:00)
[2017-01-11 18:50] VITALS: BP 101/51
--- NOTE | 2017-01-12 08:14 | DISCHARGE SUMMARY ---
DATE OF SERVICE: 01/11/2017 DIAGNOSIS: Nonspecific abdominal pain. This lady, with multiple medical problems, presented to the Emergency Room with vague abdominal pain and vomiting. Initial evaluation was suggestive of partial small bowel obstruction. However, her symptoms improved and a small bowel contrast study was negative for any mechanical obstruction. She has a longstanding, large and recurrent ventral hernia with loss of domain. At the time of discharge, she was tolerating a soft diet and has resumed normal bowel movements. I have suggested that she returns for a followup in 2 weeks. She has chronic pain, being managed [facility]. I have encouraged her to follow up with them as well. In addition, she reports not having undergone screening colonoscopy in her lifetime. I have encouraged her to consider this as well. Job ID: [id number] DocumentID: [id number] Dictated Date: 01/11/2017 17:41:42 [place] Man Date: 01/12/2017 07:27:28 Dictated By: SALLY BANERJEE MD MTDD
== END 2017-01-11 18:25 | disposition home or self-care (01) | DRG 394 ==
LOC: EDUNIT# 16:28 → ER 16:29 → 4TH 18:25
PROVIDERS: ADMIT Surgery; ATTEND Surgery
DX: K43.2 Incisional hernia without obstruction or gangrene (principal); E66.01 Morbid (severe) obesity due to excess calories; Z68.42 Body mass index [BMI] 45.0-49.9, adult; I48.0 Paroxysmal atrial fibrillation; J45.909 Unspecified asthma, uncomplicated; I10 Essential (primary) hypertension; E78.5 Hyperlipidemia, unspecified; F41.9 Anxiety disorder, unspecified; G62.9 Polyneuropathy, unspecified; E03.9 Hypothyroidism, unspecified; F32.9 Major depressive disorder, single episode, unspecified; M19.90 Unspecified osteoarthritis, unspecified site; G89.29 Other chronic pain; Z79.01 Long term (current) use of anticoagulants
CPT/HCPCS: 36415; 71010; 74000; 74177; 74250; 76705; 80053; 83690; 85007; 85025; 85027; 85610; 94640; 94664; 94760; 96374; 96375; 96376

== ENCOUNTER → 2020-04-02 | Outpatient (CLI) | payer OTHER ==
[~2020-04-02] MED LIST changes: +ATEN100T PO; +DOCU100C37 PO; +HYDR-4196 PO; +MELATONIN GUMMY PO; +MOME220A2 IH; +TR1C15 TP; +WARF-48 PO
[2020-04-02 15:26] LABS: BASOPHILS % (AUTO) 1 % (0-10); EOSINOPHILS # (AUTO) 0.3 10^3/uL (0.0-0.3); EOSINOPHILS % (AUTO) 5 % (0-10); HEMATOCRIT 46 % (35-52); HEMOGLOBIN 14.8 G/DL (11.5-16.0); LYMPHOCYTES % (AUTO) 33 % (12-44); MEAN CORPUSCULAR HEMOGLOBIN 28 PG (25-34); MEAN CORPUSCULAR HGB CONC 33 G/DL (32-36); MEAN CORPUSCULAR VOLUME 86 FL (80-99); MEAN PLATELET VOLUME 10.2 FL (7.4-10.4); MONOCYTES # (AUTO) 0.6 X 10^3 (0.0-1.0); MONOCYTES % (AUTO) 11 % (0-12); NEUTROPHILS # (AUTO) 3.1 X 10^3 (1.8-7.8); NEUTROPHILS % (AUTO) 51 % (42-75); PLATELET COUNT 245 10^3/uL (130-400); RED CELL DISTRIBUTION WIDTH 14.3 % (10.0-14.5)
[2020-04-02 15:47] LABS: ALANINE AMINOTRANSFERASE 22 U/L (0-55); ALBUMIN 4.1 GM/DL (3.2-4.5); ALKALINE PHOSPHATASE 92 U/L (40-136); BILIRUBIN,TOTAL 0.7 MG/DL (0.1-1.0); BUN/CREATININE RATIO 26; CALCIUM 9.1 MG/DL (8.5-10.1); CARBON DIOXIDE 30 MMOL/L (21-32); CHLORIDE 104 MMOL/L (98-107); CHOLESTEROL 195 MG/DL (< 200); CREATININE SERUM 0.82 MG/DL (0.60-1.30); GFR ESTIMATED > 60; GLUCOSE 118 MG/DL (70-105); HDL CHOLESTEROL 52 MG/DL (40-60); MAGNESIUM 2.3 MG/DL (1.6-2.4); SODIUM 144 MMOL/L (135-145); TOTAL PROTEIN 7.3 GM/DL (6.4-8.2); TRIGLYCERIDES 124 MG/DL (<150); VLDL CHOLESTEROL 25 MG/DL (5-40)
[2020-04-02 15:51] LABS: ERYTHROCYTE SEDIMENTATION RATE 8 MM/HR (0-30)
== END ==
LOC: LAB 15:00
PROVIDERS: ATTEND Internal Medicine Cardiovascular Disease
DX: I48.0 Paroxysmal atrial fibrillation (principal); M79.89 Other specified soft tissue disorders; I10 Essential (primary) hypertension; Z86.39 Personal history of other endocrine, nutritional and metabolic disease
CPT/HCPCS: 36415; 80053; 80061; 83735; 84443; 85025; 85652

== ENCOUNTER → 2020-04-07 | Outpatient (CLI) | payer OTHER ==
[~2020-04-07] VITALS: Ht 158 cm; Wt 132.0 kg
[~2020-04-07] MED LIST changes: +CATHETER FLUSH 10 ML SYR IV PRN; +REGADENOSON 0.4 MG/5 ML SYR (LEXISCAN) IV ONE
--- NOTE | 2020-04-08 20:50 | STRESS TEST ---
DATE OF SERVICE: 04/07/2020 RESTING AND POST REGADENOSON TECHNETIUM-99M TETROFOSMIN SPECT CT IMAGING ORDERING PHYSICIAN: Dr. Fernandez. PRIMARY PHYSICIAN: Dr. Ly Ybarra. CLINICAL DIAGNOSES: Shortness of breath, paroxysmal atrial fibrillation. Baseline images were carried out after injection of 10.62 mCi of technetium-99m Tetrofosmin. This was followed by 0.4 mg regadenoson and 32 mCi of technetium-99m Tetrofosmin for stress imaging. The electrocardiogram showed atrial fibrillation throughout the study. Ventricular response averaged at approximately 100 beats per minute. The patient tolerated the procedure well and did not report any significant symptoms. The study is technically difficult because of considerable patient motion during image acquisition. There does not appear to be distinct perfusion defects consistent with significant myocardial ischemia or infarction. Gated images show normal global left ventricular systolic function with normal regional wall motion. Left ventricular ejection fraction is calculated to be 72%. Left ventricular end diastolic volume is 33 mL. TID is absent (1.12). CONCLUSIONS: 1. No evidence of any significant myocardial ischemia or infarction on this study. 2. Normal regional wall motion. 3. Normal global left ventricular systolic function with a calculated ejection fraction of 72%. Job ID: [id number] DocumentID: [id number] Dictated Date: 04/08/2020 13:00:53 Instrument Assembler Date: 04/08/2020 13:31:18 Dictated By: MICHAEL FERNANDEZ MD, MA, FACP, FACC,
== END ==
LOC: CARD 10:45
PROVIDERS: ATTEND Internal Medicine Cardiovascular Disease
DX: I48.0 Paroxysmal atrial fibrillation (principal); I10 Essential (primary) hypertension; M79.89 Other specified soft tissue disorders; Z86.39 Personal history of other endocrine, nutritional and metabolic disease
CPT/HCPCS: 78452; 93017; 93225; 93226; 93306

== ENCOUNTER → 2022-07-22 | Outpatient (CLI) | payer MEDICARE, OTHER ==
[~2022-07-22] MED LIST changes: -CATHETER FLUSH 10 ML SYR IV PRN; +CYCL10TA25 PO; +HYDR-4085; -HYDR-87; -MOME220A2 IH; +MOME220A6 IH; -REGADENOSON 0.4 MG/5 ML SYR (LEXISCAN) IV ONE; -WARF2.5T82 PO; +WRF2.5T PO
== END ==
LOC: CARD 13:39
PROVIDERS: ATTEND Nurse Practitioner Family
DX: I51.7 Cardiomegaly (principal)
CPT/HCPCS: 93306

== ENCOUNTER → 2022-07-26 | Outpatient (CLI) | payer OTHER, MEDICARE ==
[~2022-07-26] MED LIST changes: +CATHETER FLUSH 10 ML SYR IVP PRN; +REGADENOSON 0.4 MG/5 ML SYR (LEXISCAN) IV ONE
[2022-07-26 13:37] VITALS: BP 142/98
--- NOTE | 2022-07-28 01:42 | STRESS TEST ---
DATE OF SERVICE: 07/26/2022 RESTING AND POST REGADENOSON TECHNETIUM-99M TETROFOSMIN SPECT CT IMAGING ORDERING PHYSICIAN: Lindsey Inman APRN OTHER PHYSICIAN: Dr. Balderas. CLINICAL DIAGNOSIS: Shortness of breath. Baseline images were carried out after injection of 10.02 mCi of technetium-99m tetrofosmin. This was followed by 0.4 mg regadenoson and 29.3 mCi of technetium-99m tetrofosmin for stress imaging. The electrocardiogram showed atrial fibrillation throughout the study. A few isolated premature ventricular contractions were seen. The patient noted mild shortness of breath with the regadenoson infusion, which resolved in a few minutes. Review of images at rest and following exercise did not indicate any significant perfusion defects consistent with myocardial ischemia or infarction. Gated images show normal global left ventricular systolic function with normal regional wall motion. Left ventricular ejection fraction is calculated to be 69%. CONCLUSIONS: 1. No evidence of any significant myocardial ischemia or infarction on the study. 2. Normal global left ventricular systolic function with an ejection fraction 69%. Job ID: [id number] DocumentID: [id number] Dictated Date: 07/27/2022 17:25:01 Manufacturing Planner Date: 07/28/2022 01:32:00 Dictated By: MICHAEL BALDERAS MD; SHENG; FACP; FACC;
== END ==
LOC: CARD 10:53
PROVIDERS: ATTEND Nurse Practitioner Family
DX: R06.09 Other forms of dyspnea (principal); R06.02 Shortness of breath
CPT/HCPCS: 78452; 93017